=== PATIENT | male | born 1960 | race Two or more races ===

== ENCOUNTER 2024-08-24 01:28 | Emergency (ER) | payer OTHER ==
[~2024-08-24] VITALS: Ht 172.7 cm; Wt 45.4 kg
[2024-08-24] MEDS ORDERED: PANTOPRAZOLE SO40 MG (01:58)
[2024-08-24 02:19] VITALS: O2SAT 97
[2024-08-24] MEDS ORDERED: KETOROLAC TROMETHAMINE 60 MG VIAL IM STA (02:36)
[2024-08-24] MEDS ORDERED: NIFEDIPINE 10 MG CAPSULE PO STA (02:36)
[2024-08-24 06:48] VITALS: BP 140/70
[2024-08-24] MEDS ORDERED: KETO10TA2 PO (06:48)
== END 2024-08-24 08:54 | disposition home or self-care (01) ==
LOC: ER 01:30
DX: S13.4XXA Sprain of ligaments of cervical spine, initial encounter (principal); V43.52XA Car driver injured in collision with other type car in traffic accident, initial encounter; Y93.89 Activity, other specified; Y92.413 State road as the place of occurrence of the external cause; I10 Essential (primary) hypertension; S39.012A Strain of muscle, fascia and tendon of lower back, initial encounter